=== PATIENT | female | born 1960 | race Caucasian/White ===

== ENCOUNTER → 2017-05-12 | Outpatient (CLI) | payer MEDICAID ==
[~2017-05-12] MED LIST: ALBU8.5H8 INH; ATOR10TA PO; CYCL5TAB PO; GABA300C PO; HYDR-879 PEG; HYDROXINE PO; LISI-170 PO; LISI5TAB7 PO; LORA10TA3 PO; MELO15TA6 PO; OXYC5CAP2 PO; TRAM50TA2 PO; ZOLP-413 PO
[2017-05-12 09:57] LABS: ASPARTATE AMINO TRANSFERASE 27 U/L (15-37); BLOOD UREA NITROGEN 13 mg/dL (7-18)
== END | disposition home or self-care (01) ==
LOC: STAR 08:26
PROVIDERS: ATTEND Internal Medicine Gastroenterology
DX: Z12.11 Encounter for screening for malignant neoplasm of colon (principal); I10 Essential (primary) hypertension; R19.7 Diarrhea, unspecified; K59.00 Constipation, unspecified; F32.89 Other specified depressive episodes; G47.30 Sleep apnea, unspecified; F41.9 Anxiety disorder, unspecified
CPT/HCPCS: 36415; 80053

== ENCOUNTER 2017-05-18 07:30 | Day surgery (SDC) | payer MEDICAID ==
[2017-05-12 09:07] VITALS: BP 158/96
[~2017-05-18] VITALS: Ht 152.4 cm; Wt 102.0 kg
[2017-05-18] MEDS ORDERED: MIDAZOLAM 1 MG/ML, 2ML ONE (07:52)
[2017-05-18] MEDS ORDERED: LACTATED RINGERS 1,000 ML IV SCH (08:09)
[2017-05-18] MEDS ORDERED: PROPOFOL 10 MG/ML, 20ML ONE (08:15)
[2017-05-18] MEDS ORDERED: LIDOCAINE 1%, 2ML SQ PRN (08:30)
[2017-05-18] MEDS ORDERED: MIDAZOLAM 1 MG/ML, 5ML ONE (08:37)
== END 2017-05-18 11:10 ==
LOC: OUT 07:30
PROVIDERS: ATTEND Internal Medicine Gastroenterology
DX: Z09 Encounter for follow-up examination after completed treatment for conditions other than malignant neoplasm (principal); K63.5 Polyp of colon; D12.2 Benign neoplasm of ascending colon; D12.3 Benign neoplasm of transverse colon; K64.4 Residual hemorrhoidal skin tags; Z86.010 Personal history of colon polyps; G47.33 Obstructive sleep apnea (adult) (pediatric); Z88.8 Allergy status to other drugs, medicaments and biological substances
CPT/HCPCS: 45385; 88305; J2250; J2704; J7120

== ENCOUNTER 2017-07-04 20:20 | Emergency (ER) | payer MEDICAID ==
[~2017-07-04] VITALS: Ht 152.4 cm; Wt 99.5 kg
[2017-07-04] MEDS ORDERED: DIAZEPAM 5 MG TABLET PO ONE (21:30)
[2017-07-04] MEDS ORDERED: DIAZEPAM 5 MG TABLET ONE (21:34)
[2017-07-04 21:46] LABS: MEAN CORPUSCULAR HEMOGLOBIN 27.2 pg (27.0-34.8); MEAN CORPUSCULAR HGB CONC 33.1 g/dL (32.4-35.8); MEAN CORPUSCULAR VOLUME 82.2 fL (80-100); RED BLOOD COUNT 5.13 x10^6/uL (3.82-5.3); RED CELL DISTRIBUTION WIDTH 16.3 % (9.6-15.2)
[2017-07-04 21:49] VITALS: BP 163/90
[2017-07-04 21:54] LABS: ALBUMIN 4.2 g/dL (3.4-5.0); ANION GAP 9 mmol/L (5-15); CALCIUM 8.8 mg/dL (8.5-10.1); CHLORIDE 113 mmol/L (98-107); CREATININE 1.53 mg/dL (0.55-1.02)
[2017-07-04 21:59] LABS: BASOPHILS # (AUTO) 0.02 x10^3/uL (0-0.1); BASOPHILS % (AUTO) 0 % (0-1); EOSINOPHILS # (AUTO) 0.29 x10^3/uL (0-0.4); EOSINOPHILS % (AUTO) 3 % (1-7); LYMPHOCYTES # (AUTO) 2.61 x10^3/uL (1-3.4); LYMPHOCYTES % (AUTO) 25 % (22-44); MD MORPH REVIEW ONLY; MEAN PLATELET VOLUME 12.9 fL (7.4-10.4); MONOCYTES # (AUTO) 0.65 x10^3/uL (0.2-0.8); MONOCYTES % (AUTO) 6 % (2-9); NEUTROPHILS # (AUTO) 6.99 x10^3/uL (1.8-6.8); NEUTROPHILS % (AUTO) 66 % (42-75); PLATELET COUNT 265 x10^3/uL (130-400)
[2017-07-04 22:01] LABS: ANISOCYTOSIS 1+
[2017-07-04 22:02] LABS: <PLATELET ESTIMATE> ADEQUATE; GIANT PLATELETS 1+; LARGE PLATELETS 1+
== END 2017-07-04 23:18 | disposition home or self-care (01) ==
LOC: ED 23:12
DX: S29.011A Strain of muscle and tendon of front wall of thorax, initial encounter (principal); S46.911A Strain of unspecified muscle, fascia and tendon at shoulder and upper arm level, right arm, initial encounter; F41.1 Generalized anxiety disorder; X58.XXXA Exposure to other specified factors, initial encounter; Y93.89 Activity, other specified; Y92.89 Other specified places as the place of occurrence of the external cause; Y99.8 Other external cause status
CPT/HCPCS: 36415; 71046; 80048; 82040; 85025; 93005; 99285

== ENCOUNTER 2020-03-20 16:04 | Emergency (ER) | payer MEDICAID, MEDICARE ==
[~2020-03-20] VITALS: Ht 152.4 cm; Wt 105.6 kg
[~2020-03-20 16:04] MED LIST changes: +HYDR-3622 PEG; -HYDR-879 PEG; +LORA-247 PO; -LORA10TA3 PO
--- NOTE | 2020-03-20 19:34 | NUR ---
to room at this time
--- NOTE | 2020-03-20 19:36 | NUR ---
THIS IS A 59Y F THAT COMES IN TONIGHT AFTER GLF, STS SHE LOST HER FOOTING WHILE TRYING TO CATCH HER DOG. PT STS PAIN TO L SHOULDER AND FOOT. DENIES LOC NO THINNERS. PT HAS SLING IN PLACE. PT RESTING ON [email or web address] CONNECTED TO MONITORING VSS, PHIL.
[2020-03-20 19:38] VITALS: BP 104/84
--- NOTE | 2020-03-20 19:51 | NUR ---
[facility] [employer] NO NEEDS AT THIS TIME
--- NOTE | 2020-03-20 20:13 | NUR ---
ERP AT BEDSIDE FOR FURTHER ASSESSMENT AND DISCUSS POC
--- NOTE | 2020-03-20 20:43 | NUR ---
Patient/Caregiver given discharge instructions and they have confirmed that they understand the instructions. Patient ambulatory with steady gait.
== END 2020-03-20 20:43 | disposition home or self-care (01) ==
LOC: ED 18:30
DX: M79.18 Myalgia, other site (principal); M25.512 Pain in left shoulder; M79.662 Pain in left lower leg; M25.572 Pain in left ankle and joints of left foot; W01.0XXA Fall on same level from slipping, tripping and stumbling without subsequent striking against object, initial encounter; Y93.89 Activity, other specified; Y92.009 Unspecified place in unspecified non-institutional (private) residence as the place of occurrence of the external cause; Y99.8 Other external cause status
CPT/HCPCS: 99284